=== PATIENT | male | born 1955 | race Caucasian/White ===

== ENCOUNTER 2020-07-17 10:53 | Emergency (ER) | payer OTHER, SELFPAY ==
[2020-07-17 10:57] VITALS: BP 151/99; PULSE 67; RESP 14; TEMP 36.4; O2SAT 98; BMI 30.3
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
[2020-07-17 11:13] VITALS: O2SAT 99
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
--- NOTE | 2020-07-17 11:26 | NURSING ---
NO OLD EKGS
[2020-07-17 11:27] LABS: Absolute Lymphocyte Count 3.31 X10^3/uL (0.83-4.51); Absolute Neutrophil Count 6.2 X10^3/uL (2.0-7.7); Basophil# 0.08 X10^3/uL; Basophil% 0.8 % (0-1); Eosinophil# 0.24 X10^3/uL; Eosinophils% 2.3 % (0-5); Hematocrit 34.8 % (40-54); Hemoglobin 11.1 g/dL (13.0-16.5); Lymphocyte # 3.31 X10^3/ul (4.0); Lymphocyte % 31.5 % (19-41); Mean Corp Hgb Conc 31.9 g/dL (32-36); Mean Corpuscular Hgb 29.4 pg (27.0-32.0); Mean Corpuscular Volume 92.3 fL (80-94); Mean Platelet Vol. 9.8 fl (6.2-12.0); Monocyte# 0.69 X10^3/uL; Monocyte% 6.6 % (0-10); NRBC Flagged by Analyzer 0 % (0-5); Neutrophil # 6.15 X10^3/uL (2.7-7.7); Neutrophil % 58.3 % (47-70); Platelet Count 417 K/mm3 (150-450); RBC Distribution Width CV 14.2 % (11.6-14.6); RBC Distribution Width SD 48.2 fl (35.1-43.9); Red Blood Count 3.77 M/mm3 (4.6-6.2); White Blood Count 10.5 K/mm3 (4.4-11.0)
--- NOTE | 2020-07-17 11:36 | NURSING ---
CALLED [facility]. [address]
[2020-07-17 11:37] LABS: Anion Gap 3 (5-15); BUN 21 mg/dL (7-18); BUN/Creat Ratio 14.1 RATIO (10-20); CPK Total, Creatine Kinase 167 U/L (39-308); Calcium,Total 9.1 mg/dL (8.5-10.1); Chloride 105 mmol/L (98-107); Creatinine, Serum 1.49 mg/dL (0.70-1.30); EST Glomerular Filtration Rate 50 mL/min (>60); Est Glom Filt Rate - Afr Amer 61 mL/min (>60); Estimated Creatinine Clearance 53.34 ml/min; Glucose 197 mg/dL (74-106); Potassium 4.9 mmol/L (3.5-5.1); Sodium Level 134 mmol/L (136-145)
[2020-07-17 11:45] VITALS: BP 138/99; PULSE 68; RESP 15; O2SAT 98
[2020-07-17 11:56] VITALS: BP 136/113; PULSE 72; RESP 20; O2SAT 98
[2020-07-17] MEDS: HYDROcodone Bitartrate/Apap 5/325 Tablet PO (12:40)
[2020-07-17 12:42] VITALS: BP 116/78; PULSE 78; RESP 14; O2SAT 99
--- NOTE | 2020-07-17 13:33 | ED.RN ---
Kylee ambulated [address] and back to room
[2020-07-17 13:49] VITALS: BP 132/78; PULSE 74; RESP 16; TEMP 36.6; O2SAT 99
== END 2020-07-17 14:03 | disposition home or self-care (01) ==
PROVIDERS: Emergency Provider Emergency Medicine; PCP Family Medicine
DX: S00.01XA Abrasion of scalp, initial encounter (principal); M79.652 Pain in left thigh; M79.651 Pain in right thigh; I25.10 Atherosclerotic heart disease of native coronary artery without angina pectoris; Z95.5 Presence of coronary angioplasty implant and graft; Z87.891 Personal history of nicotine dependence; Z79.82 Long term (current) use of aspirin; Z79.02 Long term (current) use of antithrombotics/antiplatelets; V59.3XXA Occupant (driver) (passenger) of pick-up truck or van injured in unspecified nontraffic accident, initial encounter
CPT/HCPCS: 70450; 71045; 72170; 80048; 82550; 84484; 85025; 90471; 93005; 99285; A4216